=== PATIENT | female | born 1980 | race Asian ===

== ENCOUNTER 2019-01-11 08:43 | Day surgery (SDC) | payer OTHER ==
[2019-01-11] VITALS (12 sets, daily range): BP systolic 90–109; BP diastolic 46–72
[~2019-01-11] VITALS: Ht 162.6 cm; Wt 49.0 kg
[~2019-01-11 08:43] MED LIST: ceFAZolin 1gm IVPB IVPB ONE; celeBREX 200mg Cap **SURGERY PATIENTS ONLY ORAL ONE; oxyCONTIN 20mg tab ORAL ONE
[2019-01-11] MEDS ORDERED: MULTIVITAMINS1 EAC2 ORAL (09:22)
[2019-01-11] MEDS ORDERED: [UNRECOGNIZED DRUG - OTHER] PO (09:22)
--- NOTE | 2019-01-11 09:33 | Pre-Procedure Note/Attestation ---
Pre-Procedure Note/Attestation Complete Prior to Procedure Planned Procedure: left Procedure Narrative: knee diagnostic arthroscopy, possible synovecomt, meniesectomy, chondrolastyy Indications for Procedure Pre-Operative Diagnosis: left knee internal deragement Attestation I attest that I discussed the nature of the procedure; its benefits; risks and complications; and alternatives (and the risks and benefits of such alternatives ), prior to the procedure, with the patient (or the patient's legal hostess party sales representative). I attest that, if there was a reasonable possibility of needing a blood transfusion, the patient (or the patient's legal hostess party sales representative) was given the [facility] standardized written summary, pursuant to the [place] Blood Safety Act ([place] Health and Safety Code # 1645, as amended). I attest that I re-evaluated the patient just prior to the surgery and that there has been no change in the patient's H&P, except as documented below: Gadiel Scherer MD Jan 11, 2019 09:33
--- NOTE | 2019-01-11 09:33 | Operative Note - PDOC ---
Operative Note Operative Note Pre-op Diagnosis: left knee internal deragement Procedure: see op report Post-op Diagnosis: same as pre-op plus Operative Findings: consistent w/pre-op dx studies Anesthesia: MAC Specimen: none Complications: none Condition: stable Estimated Blood Loss: none Implant(s) used?: No Gadiel Scherer MD Jan 11, 2019 09:33
[2019-01-11] MEDS ORDERED: oxyCONTIN 20mg tab ORAL ONE (09:34)
[2019-01-11] MEDS ORDERED: celeBREX 200mg Cap **SURGERY PATIENTS ONLY ORAL ONE (09:34)
[2019-01-11] MEDS ORDERED: LR 1000ml 1,000 ML IVLG SCH (09:44)
--- NOTE | 2019-01-11 09:44 | Anethesia Preoperative Eval ---
Anesthesia Pre-op PMH/ROS General Date of Evaluation: Jan 11, 2019 Anesthesiologist: Salo ASA Score: ASA 2 Mallampati Score Class I : Soft palate, uvula, fauces, pillars visible Class II: Soft palate, uvula, fauces visible Class III: Soft palate, base of uvula visible Class IV: Only hard plate visible Mallampati Classification: Class II Surgeon: Gilmer Diagnosis: Left knee pain Surgical Procedure: Left knee arthroscopy Anesthesia History: none Family History: no anesthesia problems Allergies: Coded Allergies: Clam (Verified Allergy, Severe, HIVES, 01/11/19) BANANA (Verified Allergy, Intermediate, SWOLLEN LIPS, 01/11/19) Medications: see eMAR Patient NPO?: Yes NPO Date: Jan 10, 2019 NPO Time: 22:00 Past Medical History Cardiovascular: Denies: HTN, CAD, CO, valve dz, arrhythmia, other Pulmonary: Denies: asthma, COPD, BRODY, other Gastrointestinal/Genitourinary: Reports: other - Left hydronephrosis; Denies: GERD, CRI, ESRD Neurologic/Psychiatric: Denies: dementia, CVA, depression/anxiety, TIA, other Endocrine: Reports: other - h/o hyperthyroidism now reesolved; Denies: DM, hypothyroidism, steroids HEENT: Denies: cataract (L), cataract (R), glaucoma, RED CLIFF (L), RED CLIFF (R), other Hematology/Immune: Denies: anemia, DVT, bleeding disorder, other Musculoskeletal/Integumentary: Denies: OA, RA, DJD, DDD, edema, other PSxH Narrative: bilateral blepharoplasty, left foot sx Anesthesia Pre-op Phys. Exam Physician Exam Last Vital Signs Date Time Temp Pulse Resp B/P (MAP) Pulse Ox O2 Delivery O2 Flow Rate FiO2 01/11/19 09:32 98.7 65 18 106/72 100 Room Air Constitutional: NAD Cardiovascular: RRR Respiratory: CTA Airway Exam Mallampati Score: Class II MO: full ROM: full Anesthesia Pre-op A/P Labs see chart Urine Test Test 01/11/19 08:55 Urine HCG, Qualitative Negative (NEGATIVE) Risk Assessment & Plan Assessment: ASA II Plan: Ga Status Change Before Surgery: No Pre-Antibiotics Drug: Yahaira Mancera MD Jan 11, 2019 09:44
[2019-01-11] MEDS ORDERED: fentaNYL 100 mcg/2 mL IV PRN (09:45)
[2019-01-11] MEDS ORDERED: DiphenhydrAMINE 50mg/ml Inj IVP PRN (09:45)
[2019-01-11] MEDS ORDERED: Hydromorphone 0.5mg/0.5ml inj IVP PRN (09:45)
[2019-01-11] MEDS ORDERED: Midazolam 2mg/2ml Inj IVP PRN (09:45)
[2019-01-11] MEDS ORDERED: Tylenol #3 tab (300mg/30mg) ORAL PRN (09:45)
[2019-01-11] MEDS ORDERED: D5 1/2NS 1,000 ML IV SCH (09:45)
[2019-01-11] MEDS ORDERED: Ketorolac 30mg Inj IV PRN (09:45)
[2019-01-11] MEDS ORDERED: HYDROmorphone 1mg/ml Carpuject SUBQ PRN (09:45)
[2019-01-11] MEDS ORDERED: HYDROcodone/Acetamin 5/325 tab ORAL PRN (09:45)
[2019-01-11] MEDS ORDERED: LORazepam Inj 2mg/ml 1ml IV PRN (09:45)
[2019-01-11] MEDS ORDERED: Metoclopramide 10mg/2ml Inj IVP PRN (09:45)
[2019-01-11] MEDS ORDERED: Ketorolac 30mg Inj ONE (10:39)
[2019-01-11] MEDS ORDERED: Kenalog-40 1ml Vial ONE (10:39)
[2019-01-11] MEDS ORDERED: Duramorph PF 5mg/10ml amp ONE (10:40)
[2019-01-11] MEDS ORDERED: Bupivacaine 0.25% Inj 30ml INJ ONE (10:40)
[2019-01-11] MEDS ORDERED: Lidocaine 1% 10mg/ml/Epi 0.005mg/ml 30ml vial INJ ONE (10:40)
[2019-01-11] MEDS ORDERED: Sterile Water Irrig 1000ml IRRIG ONE (11:00)
[2019-01-11] MEDS ORDERED: NS Irrig 1000ml ONE (11:00)
[2019-01-11] MEDS ORDERED: LR 1000ml ONE (11:00)
[2019-01-11] MEDS ORDERED: Propofol 200mg/20ml IV ONE (11:01)
[2019-01-11] MEDS ORDERED: Lidocaine 1% MPF 10mg/ml 5ml ONE (11:01)
[2019-01-11] MEDS ORDERED: Midazolam 2mg/2ml Inj ONE (11:02)
[2019-01-11] MEDS ORDERED: fentaNYL 100 mcg/2 mL IV ONE (11:02)
[2019-01-11] MEDS ORDERED: Duramorph PF 5mg/10ml amp IT ONE (11:25)
[2019-01-11] MEDS ORDERED: NS Irrig 4000ml IRRIG ONE ×2 (11:25→11:42)
--- NOTE | 2019-01-11 12:06 | Immediate Post-Op Evaluation ---
Immediate Post-Op Evalulation Immediate Post-Op Evalulation Procedure: Left knee arthroscopy Date of Evaluation: Jan 11, 2019 Time of Evaluation: 12:08 IV Fluids: 400 Blood Products: 0 Estimated Blood Loss: min Urinary Output: 0 Blood Pressure Systolic: 109 Blood Pressure Diastolic: 62 Pulse Rate: 97 Respiratory Rate: 16 O2 Sat by Pulse Oximetry: 100 Temperature (Fahrenheit): 97.2 Pain Score (1-10): 0 Nausea: No Vomiting: No Complications 0 Patient Status: awake, reacts, patent, none Hydration Status: adequate Drug: ancef 1g Given Within 1 Hr of Incision: Yahaira Terry MD Jan 11, 2019 12:06
--- NOTE | 2019-01-11 12:07 | 48 Hour Post Anesthesia Eval ---
Post Anesthesia Evaluation Procedure: Left knee arthroscopy Date of Evaluation: Jan 11, 2019 Airway: patent Nausea: No Vomiting: No Pain Intensity: 0 Hydration Status: adequate Cardiopulmonary Status: at baseline Mental Status/LOC: patient returned to baseline Post-Anesthesia Complications: 0 Follow-up care needed: ready to discharge Yahaira Ogden MD Jan 11, 2019 12:07
--- NOTE | 2019-01-11 16:45 | Operative Note - Dictated ---
DATE OF OPERATION: 01/11/2019 PREOPERATIVE DIAGNOSES: 1. Internal derangement, left knee. 2. Left knee laceration healed. POSTOPERATIVE DIAGNOSES: Left knee hypertrophic synovial tissue, patellofemoral compartment. PROCEDURE: 1. Left knee diagnostic arthroscopy. 2. Synovectomy medial and lateral patellofemoral compartment. SURGEON: Gadiel Scherer M.D. ANESTHESIA: General. INDICATION FOR PROCEDURE: The patient is a pleasant female had direct trauma to the left knee, had a laceration which was healing but she continued to have anterior knee pain. She failed conservative treatment, elected to undergo left knee diagnostic arthroscopy, possible synovectomy and chondroplasty of the patellofemoral compartment. Risks, limitations, expectations, complication of the procedure were discussed in detail. All questions addressed. DESCRIPTION OF PROCEDURE: After informed consent was obtained, the patient was brought to the operating room. The patient was placed under general anesthesia. The left leg was prepped and draped in sterile manner. Time-out was performed. An inferolateral stab incision was then made. Trocar introduced into the patellofemoral compartment. There was hypertrophic fat pad in synovial tissue. Medial gutter was free of any loose bodies. Medial compartment was entered. There was no obvious meniscal chondral damage. There was hypertrophic synovial tissue and fat pad. Medial working portal was established. Synovectomy of the medial compartment, intercondylar notch, lateral compartment, patellofemoral compartment was performed. The ACL was probed and noted to be intact. Lateral port was entered and free of meniscal chondral damage. The patellofemoral component was entered. Completion of the synovectomy, excision of fat pad was performed. Once that was done, instruments were removed. Portal sites were closed with 3-0 Monocryl suture. Steri-Strips and a sterile dressing were applied. ESTIMATED BLOOD LOSS: None. COMPLICATIONS: None. SPECIMENS: None. Gadiel Scherer M.D. DR: Sonya JOB#: [id number] CC:
== END 2019-01-11 13:40 | disposition home or self-care (01) ==
LOC: SUR 08:43
DX: M23.92 Unspecified internal derangement of left knee (principal); M67.262 Synovial hypertrophy, not elsewhere classified, left lower leg
CPT/HCPCS: 29876; 81025; J0690; J1885; J2250; J2405; J2704; J3010; J3301; J3490; 94003; 94150